=== PATIENT | male | born 1950 | race Caucasian/White ===

== ENCOUNTER 2018-07-17 11:46 | Observation (INO) | payer OTHER, MEDICARE ==
[2018-07-17 12:33] LABS: #Basophils 0.1 thou/uL (0.0-0.2); #Eosinphils 0.1 thou/uL (0.0-0.7); #Lymphocytes 1.7 thou/uL (1.20-3.40); #Monocytes 0.7 thou/uL (0.11-0.59); #Neutrophils 5.4 thou/uL (1.40-6.50); %Basophils 0.6 % (0.0-1.0); %Eosinophils 1.1 % (0.0-10.0); %Lymphocytes 20.9 % (21.0-51.0); %Monocytes 8.9 % (0.0-10.0); %Neutrophils 68.4 % (42.0-75.0); Hemoglobin 17.4 g/dL (14.0-18.0); Mean Corpuscular HGB CONC 34.4 g/dL (32.0-36.0); Mean Corpuscular Hemoglobin 32.8 pg (27.0-31.0); Mean Corpuscular Volume 95.5 fL (78.0-98.0); Mean Platelet Volume 7.4 fL (7.4-10.4); Platelet Count 244 thou/uL (130-400); RBC Distribution Width 12.2 % (11.5-14.5); White Blood Cell (WBC) Count 7.9 thou/uL (4.8-10.8)
[2018-07-17 12:46] LABS: ALT (SGPT) 28 U/L (8-55); AST (SGOT) 26 U/L (5-34); Albumin 4.4 g/dL (3.4-4.8); Alkaline Phosphatase 105 U/L (40-150); Anion Gap 13 mmol/L (10-20); BUN (Urea Nitrogen) 13 mg/dL (8.4-25.7); Bilirubin, Total 0.7 mg/dL (0.2-1.2); CK (CPK) 150 U/L (30-200); Calc. Creatinine Clearance 0 mL/min (70-130); Calcium 9.4 mg/dL (7.8-10.44); Carbon Dioxide 22 mmol/L (23-31); Chloride 107 mmol/L (98-107); Estimated GFR-MDRD 68; Globulin 2.8 g/dL (2.4-3.5); Glucose 109 mg/dL (80-115); Potassium 4.4 mmol/L (3.5-5.1); Protein, Total 7.2 g/dL (5.8-8.1); Sodium 138 mmol/L (136-145)
[2018-07-17 12:49] LABS: CKMB 3.1 ng/mL (0-6.6); Troponin I Less than 0.010 ng/mL (< 0.028)
--- NOTE | 2018-07-17 13:17 | CT ---
HEAD CT WITHOUT CONTRAST: Date: 07-17-18 Comparison: None. History: Stroke alert. Dizziness. Technique: Serial axial CT imaging is obtained at 5 mm intervals from vertex through the skull base w ithout contrast. FINDINGS: The imaged paranasal sinuses and mastoid air cells appear well aerated. There is no displace calvaria l fracture. No intracranial hemorrhage, midline shift, mass effect or ventricular enlargement. There is multifocal periventricular, deep, and subcortical white matter hypodensity, evidence of smal l vessel disease. IMPRESSION: Evidence of small vessel disease. No intracranial hemorrhages noted. Results discussed with Dr. Alejandro at 12:36 p.m. 07-17-18. Code CR POS: NOEL
[2018-07-17] MEDS ORDERED: Diazepam 5 MG TAB ONE (13:44)
--- NOTE | 2018-07-17 14:05 | CT ---
CT ANGIOGRAM OF HEAD CT ANGIOGRAM OF NECK: Date: 07/17/18 COMPARISON: None. HISTORY: Dizziness. TECHNIQUE: Serial axial CT imaging obtained at 1.25 mm intervals from the vertex through the upper chest with IV contrast using a CT angiogram protocol. Coronal and sagittal 3D reformatted imaging obtained. FINDINGS: The imaged lung apices appear unremarkable. The retroantral and the parapharyngeal fat appears clear bilaterally. The parotid glands and the submandibular glands appear unremarkable bilaterally. There are two nonspecific enlarged Level I lymph nodes on the right measuring up to 1.2 cm. The region of the thyroid gland, cricoid cartilage, thyroid cartilage, hyoid bone, tonsillar pillars, epiglottis, and preepiglottic fat appear unremarkable. The innominate artery origin, left common carotid artery origin, and left subclavian artery origin ap pear unremarkable. The left vertebral artery emanates directly from the aortic arch and there is mild stenosis at the or igin of the left vertebral artery. The left vertebral artery is relatively hypoplastic, but patent. The right vertebral artery is unremarkable. There is mild calcified plaque at the origin of the internal carotid artery bilaterally. On the basis of NASCET criteria, no hemodynamically significant stenosis is appreciated involving the common or i nternal carotid artery on either side. There is mild stenosis at the origin of the left internal alejandre tid artery. The basilar artery is patent. Branches of the basilar artery appear patent as well. There is a mild f ocal area of stenosis involving the proximal left posterior cerebral artery on axial image 108. No he modynamically significant stenosis, saccular aneurysm, or vascular occlusion is seen involving the po sterior circulation. Anterior cerebral arteries, anterior communicating artery, and bilateral A1 segments are patent. The ICA bifurcation and the M1 segment is patent bilaterally. The MCA bifurcation and the distal MCA branches appear patent bilaterally. No saccular aneurysm, high grade stenosis, or vascular occlusion is seen involving the anterior circulation. The imaged paranasal sinuses/mastoid air cells are well aerated. There is degenerative end plate change at C6-7 with bilateral facet and uncovertebral osteophyte form ation. There is no lytic or blastic bone lesion identified. IMPRESSION: 1. Patent arterial structures of the head and neck as detailed above. 2. Nonspecific mild lymphadenopathy is noted within Level I on the right. Results called to Dr. Pompa at 1255 hours on 07/17/18. CODE CR. POS: [id number]
--- NOTE | 2018-07-17 14:32 | PDOC.FPRHP ---
- History of Present Illness Chief Complaint: Dizziness History of Present Illness: Mr. Kincaid presents with his family to the ED this morning after becoming acutely dizzy and unable to walk straight. He reports sinus complaints on and off for the past few months, including: rhinnorhea, cough, and congestion. He went to an urgent care 2 months ago and was treated for sinusitis with reported resolution of his symptoms. His symptoms returned earlier this week, along with dizziness, night sweats, fatigue , and tinnitus. He denies and chest pain, SOB, palpiations, focal weakness, numbness or tingling. ED Course: CK, CKMB/trop, CBC, CMP, CT brain, CTA all negative - History PMHx:none PSHx: ortho L shoulder/bl knees FHx: none Social:5-12 beers a day, 60 pack years, no drugs - Review of Systems General: reports: night sweats, fatigue. denies: fever/chills Eyes: reports: eye pain, vision changes ENT: reports: nasal congestion, rhinorrhea Respiratory: reports: cough, congestion. denies: shortness of breath Cardiovascular: denies: chest pain, palpitation, edema Gastrointestinal: denies: nausea, vomiting, diarrhea Genitourinary: denies: incontinence, dysuria Skin: denies: rashes, lesions Musculoskeletal: denies: pain, tenderness Neurological: denies: numbness, syncope, seizure, weakness - Vital signs BP: [128/85] HR: [63] RR: [20] Tmax: [98.5] Pox: [95]% on [RA] Wt: [97.52kg] - Physical Exam Constitutional: NAD HEENT: normocephalic and atraumatic, EOMI, MMM, other (reported double vision, not exactly normal tracking of eyes. poor dentition) Neck: supple, trachea midline, no bruits, other (no sinus tenderness) Chest: no-tender to palpation, no lesions Heart: normal S1/S2, pulses present, no edema, other (bradycardia, extra beats noted) Lungs: CTAB, no respiratory distress, good air movement, no rales/rhonchi Abdomen: soft, non-tender, no masses/distention Musculoskeletal: normal structure, normal tone, ROM grossly normal Neurological: no focal deficit, CN II-XII intact, normal sensation Skin: no rash/lesions, good turgor Heme/Lymphatic: no unusual bruising or bleeding, no petechia Psychiatric: normal mood and affect, good judgment and insight FMR H&P: Results - Labs Result Diagrams: 07/17/18 12:25 07/17/18 12:25 Lab results: WBC 7.9 thou/uL (4.8-10.8) 07/17/18 12:25 Hgb 17.4 g/dL (14.0-18.0) 07/17/18 12:25 Hct 50.6 % (42.0-52.0) 07/17/18 12:25 MCV 95.5 fL (78.0-98.0) 07/17/18 12:25 Plt Count 244 thou/uL (130-400) 07/17/18 12:25 Neutrophils % 68.4 % (42.0-75.0) 07/17/18 12:25 Sodium 138 mmol/L (136-145) 07/17/18 12:25 Potassium 4.4 mmol/L (3.5-5.1) 07/17/18 12:25 Chloride 107 mmol/L (98-107) 07/17/18 12:25 Carbon Dioxide 22 mmol/L (23-31) L 07/17/18 12:25 BUN 13 mg/dL (8.4-25.7) 07/17/18 12:25 Creatinine 1.08 mg/dL (0.6-1.3) 07/17/18 12:25 Glucose 109 mg/dL (80-115) 07/17/18 12:25 Calcium 9.4 mg/dL (7.8-10.44) 07/17/18 12:25 Total Bilirubin 0.7 mg/dL (0.2-1.2) 07/17/18 12:25 AST 26 U/L (5-34) 07/17/18 12:25 ALT 28 U/L (8-55) 07/17/18 12:25 Alkaline Phosphatase 105 U/L (40-150) 07/17/18 12:25 Creatine Kinase 150 U/L (30-200) 07/17/18 12:25 CK-MB (CK-2) 3.1 ng/mL (0-6.6) 07/17/18 12:25 Serum Total Protein 7.2 g/dL (5.8-8.1) 07/17/18 12:25 Albumin 4.4 g/dL (3.4-4.8) 07/17/18 12:25 - EKG Interpretation EKG: sinus bradycardia with 1st degree AV block FMR H&P: A/P - Problem List (1) CVA (cerebral vascular accident) Current Visit: Yes Status: Acute Code(s): I63.9 - CEREBRAL INFARCTION, UNSPECIFIED (2) Bradycardia Current Visit: Yes Status: Acute Code(s): R00.1 - BRADYCARDIA, UNSPECIFIED (3) Allergic rhinitis Current Visit: Yes Status: Acute Code(s): J30.9 - ALLERGIC RHINITIS, UNSPECIFIED (4) Alcohol abuse Current Visit: Yes Status: Acute Code(s): F10.10 - ALCOHOL ABUSE, UNCOMPLICATED (5) Tobacco abuse Current Visit: Yes Status: Acute Code(s): Z72.0 - TOBACCO USE - Plan CVA - possible vs TIA vs complicated migraine vs orthostatic hypotension - neg CT and CVA - alert stroke, consider neurology consult - permissive hypertension - high dose statin therapy - orthostatic vital signs - MRI without contrast Bradycardia - continuous cardiac monitoring on stroke floor - repeat EKG for chest pain/palpitations Allergic rhinitis - possibly complicated by sinusitis/labrythintis or abcess - obtain more extensive sinus read from brain CT Alcohol abuse - possibly vitamin deficient - Order thiamine, B12, Mg, and lipids - Alcohol withdrawal protocol Tobacco abuse - encourage cessation DVT ppx: Lovenox GI ppx: none Fall risk Dispo: admit to stroke floor for cardiac monitoring and further work up. FMR H&P: Upper Level - Pertinent history 68 y/o smoker without good healthcare f/u admitted with stroke like symptoms starting this am. One episode of similar sx Tuesday that resolved. Symptoms include diplopia, R lateral gaze, head pressure and ataxia. No focal weakness, slurred speech. No associated CP, SOB, leg edema. d - Pertinent findings General: NAD ENT: No sinus tenderness. R gaze, but muscles intact. Acuity WNL as well. CARDIO: RRhythm, bradycardic, no MRG RESP: Lungs CTA - Plan Date/Time: 07/17/18 1429 IDavid, have evaluated this patient and agree with findings/plan as outlined by digital media intern resident. Pertinent changes/additions are listed here. 68 y/o M admitted for stroke-like symptoms. 1. Probable CVA Patients main symptoms are lateral gaze with diplopia, & ataxia which are new as of this weekend. He will be placed on ASA and a statin. An initial CT was negative in the ED. Will order MRI. Consider abscess or infection as hes had lingering sinus problems for 1 month although sinuses clear on CT and non-tender and labs are not suggesting infection. Also will encourage lifestyle modifications. Lipid panel to further analyze risk. 2. 1st Degree AV Block Continue to monitor. Doubtfully contributing to current above symptoms 3. ETOH abuse Will place on ANTONY Protocol and monitor for s/s of withdrawal. Check Folate/B12/Thiamine and supplement as needed. 4. 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 Allergic Rhinitis Antihistamine and Flonase 6. Poor Medical Compliance Has not seen a physician in many years and is at high risk form many condition as he is an alcoholic and lifelong smoker. He will need to see a physician regularly upon discharge. DISPO: Anticipate discharge in 1-3 days. Attending Addendum - Attending Addendum Date/Time: 07/18/18 1102 I personally evaluated the patient and discussed the management with Dr. Slater a time of admission yesterday. I agree with the History, Examination, Assessment and Plan documented above with any addition or exceptions noted below. Suspect a MCA ischemic CVA.
[2018-07-17] MEDS ORDERED: ISOVUE-370 76%-LOCM 1 ML ONE (15:14)
[2018-07-17 15:48] VITALS: BMI 31.0
[2018-07-17] MEDS ORDERED: Prevnar 13-Val Conj/PF 0.5 ML SYRINGE IM ONE (16:30)
[2018-07-17] MEDS ORDERED: hydrALAZINE 20 MG/ML VIAL SLOW IVP PRN (16:45)
[2018-07-17] MEDS ORDERED: Multivitamins, Adult 10 ML, Folic Acid 1 MG, Thiamine HCl 100 MG in Dextrose 5 %-0.45 %... IV SCH (16:45)
[2018-07-17] MEDS: Acetaminophen 325 MG TAB PO PRN ×2 (17:40→21:19)
[2018-07-17 18:24] LABS: Folate (Folic Acid) 14.5 ng/mL (7.0-31.4)
[2018-07-17] MEDS: BEER 1 CAN PO SCH (18:38)
[2018-07-17] MEDS ORDERED: Atorvastatin Calcium 40 MG TAB PO SCH (21:00)
[2018-07-18 05:16] LABS: Cardiac Risk 5.2 (Less than 4.5)
--- NOTE | 2018-07-18 05:30 | PDOC.FM ---
- Subjective Subjective: Mr. Kincaid is resting comfortably in bed with his at his bedside. He reports his headache is resolved and visual disturbances have improved. He has not had any new weakness develop, denies chest pain, SOB, palpitations. - Objective Vital Signs & Weight: Vital Signs (12 hours) Temp Pulse Resp BP BP BP BP 07/18/18 04:00 98.0 F 57 L 16 143/77 H 07/18/18 00:05 133/73 07/18/18 00:00 97.6 F 63 16 133/73 07/17/18 20:00 99.1 F 55 L 16 148/76 H 07/17/18 19:00 148/76 H 07/17/18 18:15 139/76 143/90 H 146/81 H Pulse Ox 07/18/18 04:00 95 07/18/18 00:05 07/18/18 00:00 94 L 07/17/18 20:00 96 07/17/18 19:00 07/17/18 18:15 Weight Weight 98.067 kg I&O: 07/16/18 07/17/18 07/18/18 06:59 06:59 06:59 Intake Total 240 Balance 240 Result Diagrams: 07/17/18 12:25 07/17/18 12:25 <Gene Slater - Last Filed: 07/18/18 09:23> - Objective Vital Signs & Weight: Vital Signs (12 hours) Temp Pulse Pulse Pulse Pulse Resp BP 07/18/18 16:00 99 F 66 20 07/18/18 11:51 98.3 F 68 18 07/18/18 10:20 62 64 59 L 152/82 H 07/18/18 09:29 154/68 H BP BP BP Pulse Ox 07/18/18 16:00 143/75 H 94 L 07/18/18 11:51 147/99 H 95 07/18/18 10:20 158/91 H 146/70 H 07/18/18 09:29 154/87 H Weight Weight 98.067 kg I&O: 07/17/18 07/18/18 07/19/18 06:59 06:59 06:59 Intake Total 1540 1920 Balance 1540 1920 Result Diagrams: 07/17/18 12:25 07/17/18 12:25 <Yesenia Leslie Last Filed: 07/18/18 21:31> Phys Exam - Physical Examination Constitutional: NAD HEENT: moist MMs Respiratory: no wheezing, no rales, no rhonchi, clear to auscultation bilateral Cardiovascular: RRR (bradycardia ), no significant murmur, no rub Gastrointestinal: soft, non-tender Musculoskeletal: no edema, pulses present Neurological: non-focal, normal sensation, moves all 4 limbs Psychiatric: normal affect Skin: no rash <Gene Slater - Last Filed: 07/18/18 09:23> Dx/Plan (1) CVA (cerebral vascular accident) Code(s): I63.9 - CEREBRAL INFARCTION, UNSPECIFIED Status: Acute (2) Bradycardia Code(s): R00.1 - BRADYCARDIA, UNSPECIFIED Status: Acute (3) Allergic rhinitis Code(s): J30.9 - ALLERGIC RHINITIS, UNSPECIFIED Status: Chronic (4) HLD (hyperlipidemia) Code(s): E78.5 - HYPERLIPIDEMIA, UNSPECIFIED Status: Acute (5) Alcohol abuse Code(s): F10.10 - ALCOHOL ABUSE, UNCOMPLICATED Status: Chronic (6) Tobacco abuse Code(s): Z72.0 - TOBACCO USE Status: Chronic - Plan Plan: CVA - possible vs TIA vs complicated migraine - neg CT and CVA - Stroke team consulted - consider neurology consult - permissive hypertension - high dose statin therapy - orthostatic vital signs negative - MRI without contrast Bradycardia - continuous cardiac monitoring on stroke floor - repeat EKG for chest pain/palpitations - obtain echocardiogram Allergic rhinitis - possibly complicated by sinusitis/labrythintis HLD - high dose statin - continue as home med Alcohol abuse - Thiamin, B12, Mg all wnl - Beer wm - DC Alcohol withdrawal protocol Tobacco abuse - encourage cessation DVT ppx: Lovenox GI ppx: none Fall risk Dispo: admit to stroke floor for cardiac monitoring and further work up. <Gene Slater - Last Filed: 07/18/18 09:23> Attending Addendum - Attending Addendum Date/Time: 07/18/182126 I personally evaluated the patient and discussed the management with Dr. Slater. I agree with the History, Examination, Assessment and Plan documented above with any addition or exceptions noted below- Patient winthout complaints. States that dizziness is improved. Unable to complete MRI earlier due to cough while supine from drainage. Afebrile VSS. A/P: 1) Dizziness/gaze deviation- Will reattempt MRI after medication for anxiety and drainage. Eill check echo and consult neurology. <Yesenia Leslie - Last Filed: 07/18/18 21:31>
[2018-07-18] MEDS ORDERED: Enoxaparin Sodium 40 MG/0.4 ML SYRINGE SC SCH (09:00)
[2018-07-18] MEDS ORDERED: Aspirin 325 mg Enteric Coated Tablet PO SCH (09:00)
[2018-07-18] MEDS ORDERED: Fluticasone Propionate Nasal Spray 16 gm Bottle NASAL SCH (09:00)
[2018-07-18] MEDS: Acetaminophen 325 MG TAB PO PRN (09:09)
[2018-07-18] MEDS: BEER 1 CAN PO SCH ×3 (09:37→18:25)
[2018-07-18] MEDS ORDERED: Loratadine 10 MG TAB PO SCH (12:30)
[2018-07-18] MEDS ORDERED: Benzonatate 100 MG CAP PO SCH (14:50)
[2018-07-18] MEDS ORDERED: Diabetic Tussin 200 MG/10 ML UDCUP PO SCH (14:50)
[2018-07-18 16:15] VITALS: BP 143/75; TEMP 99
--- NOTE | 2018-07-18 18:21 | MRI ---
MRI OF BRAIN WITHOUT CONTRAST: 07/18/18 HISTORY: Dizziness. FINDINGS: Correlation is made with the CT scan from previous day. No restricted diffusion is seen. There are multiple foci of T2 prolongation in the periventricular wh ite matter consistent with chronic small vessel ischemic disease. No evidence of infarct, hemorrhage, midline shift or abnormal extra-axial fluid collections are seen. The ventricular size is appropriat e and the basilar cisterns patent. There is mucosal disease in the paranasal sinuses. IMPRESSION: No evidence of acute intracranial process. POS: [facility]
--- NOTE | 2018-07-18 23:58 | CON ---
DATE OF CONSULTATION: 07/18/2018 CONSULTING PHYSICIAN: Hospitalist Service. IMPRESSION: 1. Probable basilar transient ischemic attack without identifiable injury. 2. Moderate subclinical small vessel ischemic disease. 3. Tobacco use. PLAN: 1. Aspirin 325 mg per day. 2. Lipitor 20 mg per day. 3. Follow up with primary care physician in [place] for monitoring. Mr. Kincaid is a 68-year-old gentleman with no significant past history. He does admit to smoking an d drinking beer on occasion. He was standing on his porch when he acutely developed a fairly signifi cant headache with bilateral blurred vision and some difficulty walking. As his vision cleared, he n oted that he was having some double vision. He covered one eye, the images would become single. His symptoms improved over a few hours. He was taken in by ambulance for evaluation. He was transferre d here and had a CT scan of the brain and CTA, neither of which showed any significant problems. He is scheduled for an echocardiogram, but it is pending at this point. He had an MRI of the brain done this afternoon, which I reviewed and was as noted above. He was not on any type of medication. PAST HISTORY: Otherwise, negative. ALLERGIES: None. SOCIAL HISTORY: Positive for tobacco and alcohol. FAMILY HISTORY: Noncontributory. REVIEW OF SYSTEMS: No complaints of chest pain, shortness of breath, lateralized weakness or numbnes s. PHYSICAL EXAMINATION: GENERAL: Somewhat overweight, but reasonably healthy-appearing man, who appears younger than his age . HEENT: Pupils are equal and reactive. Conjunctivae clear. No nystagmus noted. Oropharynx is clear . NECK: No lymphadenopathy. EXTREMITIES: No cyanosis, clubbing, or edema. NEUROLOGIC EXAM: He is alert and cooperative. His speech is fluent and clear. His exam was nonfoca l. There is no tremor or dysmetria present. LABORATORY STUDIES: EKG showed normal sinus rhythm. SUMMARY: Given his description of the events, it is highly suggestive of a basilar transient ischemi c attack. We can begin treatment with aspirin and a statin. He has no cardiac history to suggest ca rdioembolic source. I would not be against foregoing the echocardiogram.
[2018-07-19] MEDS ORDERED: Loratadine 10 MG TAB PO SCH ×3 (09:00→12:18)
--- NOTE | 2018-07-19 10:30 | DIS-2 ---
DATE OF ADMISSION: 07/17/2018 DATE OF DISCHARGE: 07/18/2018 ADMITTING ATTENDING: Dr. Yesenia Leslie DISCHARGE ATTENDING: Dr. Jeramie Francis CONSULTATIONS: Neurology, Dr. Martin PROCEDURES: 1. CT brain CTA in ED negative for acute processes. 2. MRI of brain without contrast, no evidence of acute intracranial processes. PRIMARY DIAGNOSIS: Cerebrovascular accident, rule out. SECONDARY DIAGNOSES: 1. Bradycardia. 2. Allergic rhinitis. 3. Hyperlipidemia. 4. Alcohol abuse. 5. Tobacco abuse. DISCHARGE MEDICATIONS: 1. Aspirin 325 mg p.o. daily. 2. Atorvastatin 80 mg p.o. daily. DISCONTINUED MEDICATIONS: None. HISTORY OF PRESENT ILLNESS AND HOSPITAL COURSE: The patient presented to ED with complaints of dizzi ness and visual disturbances for the past week, worsening this morning. The patient denies any previ ous history of medical illnesses or stroke. The patient reports headache, visual disturbances. No c hest pain. Denies shortness of breath, palpitations, focal weakness, numbness, tingling. The patien t has a history of chronic sinus difficulties for which he has taken over the counter allergy relief medications. During his hospital stay, he was moved to the stroke floor. Stroke Team was consulted. Neurology was consulted and evaluated by Neurology. CVA was ruled out via the MRI and Neurology pe r Neurology consult. DISPOSITION: Stable. DISCHARGE INSTRUCTIONS: 1. Location: Home. 2. Diet: Heart healthy. 3. Activity: As tolerated. 4. Followup: Establish with primary care provider within the next month for followup of undiagnosed medical conditions including hyperlipidemia, tobacco and alcohol abuse.
== END 2018-07-18 19:00 | disposition home or self-care (01) ==
LOC: ERS 11:46 → 2SE 15:22
PROVIDERS: ADMIT Family Medicine; ATTEND Family Medicine
DX: R42 Dizziness and giddiness (principal); R51 Headache; R00.1 Bradycardia, unspecified; F17.210 Nicotine dependence, cigarettes, uncomplicated; F10.10 Alcohol abuse, uncomplicated; J30.9 Allergic rhinitis, unspecified; I44.0 Atrioventricular block, first degree; E78.5 Hyperlipidemia, unspecified; Z91.19 Patient's noncompliance with other medical treatment and regimen
CPT/HCPCS: 36415; 70450; 70496; 70498; 70551; 80053; 80061; 82553; 82607; 82746; 84425; 84484; 85025; 90471; 90662; 90670; 93005; 93306; 96372; G0008; G0009; G0378; G8978-GP-CJ; G8979-GP-CJ; G8980-GP-CJ; G8987-GO-CI; G8988-GO-CI; G8989-GO-CI; G9168-GN-CI; G9169-GN-CI; J1650; J3411; J7042

== ENCOUNTER 2023-04-13 10:12 | Outpatient (CLI) | payer MEDICARE | END 2023-04-13 10:13 | disposition home or self-care (01) | LOC: LABBT 10:12 | PROVIDERS: ATTEND Orthopaedic Surgery | DX: Z01.818 Encounter for other preprocedural examination (principal); M17.0 Bilateral primary osteoarthritis of knee | CPT/HCPCS: 71046; 93005; 93010 ==